=== PATIENT | female | born 1970 | race Caucasian/White ===

== ENCOUNTER → 2016-07-02 | Outpatient (CLI) | payer BC | LOC: FIMAGING 09:42 | DX: Z12.31 Encounter for screening mammogram for malignant neoplasm of breast (principal) | CPT/HCPCS: G0202 ==

== ENCOUNTER → 2017-06-17 | Outpatient (CLI) | payer BC | LOC: BMCIMAGING 08:34 | PROVIDERS: ATTEND Orthopaedic Surgery | DX: M25.561 Pain in right knee (principal) ==

== ENCOUNTER → 2017-08-06 | Outpatient (CLI) | payer BC | LOC: FIMAGING 08:26 | DX: Z12.31 Encounter for screening mammogram for malignant neoplasm of breast (principal) ==

== ENCOUNTER → 2017-10-16 | Outpatient (CLI) | payer BC | LOC: BMCIMAGING 08:25 | PROVIDERS: ATTEND Orthopaedic Surgery | DX: M16.11 Unilateral primary osteoarthritis, right hip (principal) ==

== ENCOUNTER → 2017-12-17 | Outpatient (CLI) | payer BC | LOC: BMCIMAGING 08:50 | PROVIDERS: ATTEND Orthopaedic Surgery | DX: M16.11 Unilateral primary osteoarthritis, right hip (principal) ==

== ENCOUNTER → 2018-09-08 | Outpatient (CLI) | payer BC | LOC: FIMAGING 09:40 ==